=== PATIENT | female | born 1985 | race Caucasian/White ===

== ENCOUNTER 2021-01-14 21:42 | Inpatient (IN) | payer BC ==
[~2021-01-14] VITALS: Ht 167.6 cm
[2021-01-14 21:44] VITALS: BP 123/88
[2021-01-14 22:15] LABS: ABSOLUTE BASOPHILS 0.1 thou/uL (0.0-0.2); ABSOLUTE EOSINOPHILS 0.4 thou/uL (0.0-0.7); ABSOLUTE LYMPHOCYTES 2.7 thou/uL (0.8-5.3); ABSOLUTE MONOCYTES 0.5 thou/uL (0.0-1.2); ABSOLUTE NEUTROPHILS 3.8 thou/uL (1.6-8.1); BASOPHILS 1.5 %; EOSINOPHILS 5.3 %; HEMATOCRIT 47.2 % (37.0-47.0); HEMOGLOBIN 15.6 gm/dL (12.0-15.0); LYMPHOCYTES 35.6 %; MCV 84.8 fL (80.0-100.0); MONOCYTES 7.3 %; MPV 6.8 fl. (7.2-11.1); NUCLEATED RBCS 0 /100WBC; PLATELET COUNT* 385 thou/uL (150-400); POLYS 50.3 %; RBC 5.57 mil/uL (4.20-5.00); WBC 7.5 thou/uL (4.0-11.0)
[2021-01-14 22:21] LABS: CALCIUM 7.6 mg/dL (8.5-10.1); CREATININE 0.8 mg/dL (0.6-1.3); POTASSIUM 4.3 mmol/L (3.5-5.1)
[2021-01-14 22:32] LABS: ALBUMIN 3.9 g/dL (3.4-5.0); MAGNESIUM 2.5 mg/dL (1.8-2.4); TOTAL BILIRUBIN 0.2 mg/dL (<0.1-1.0)
[2021-01-14] MEDS ORDERED: BUSPIRONE HCL10 MG PO (22:51)
[2021-01-14] MEDS ORDERED: NEURONTIN300 MG PO (22:52)
[2021-01-14] MEDS ORDERED: DIAZEPAM 5 MG5 M1 PO (22:52)
[2021-01-14 23:09] LABS: URINE BILIRUBIN NEGATIVE (Negative); URINE BLOOD NEGATIVE (Negative); URINE CLARITY CLEAR; URINE COLOR YELLOW; URINE GLUCOSE-RANDOM NEGATIVE (Negative); URINE KETONES NEGATIVE (Negative); URINE LEUKOCYTES-REFLEX NEGATIVE (Negative); URINE NITRITE-REFLEX NEGATIVE (Negative); URINE PROTEIN NEGATIVE (Negative); URINE SPECIFIC GRAVITY 1.015 (1.005-1.030); URINE UROBILINOGEN 0.2 E.U./dl (0.2-1.0)
[2021-01-14 23:10] LABS: BE -4.9 mmol/L (-2 to +3); PCO2 40.3 mmHg (35.0-45.0); pH 7.329 (7.340-7.450)
[2021-01-14 23:15] LABS: AMP/METHAMP Negative (Negative); BARBITURATES Negative (Negative); BENZODIAZEPINES POSITIVE (Negative); COCAINE Negative (Negative); METHADONE Negative (Negative); OPIATES Negative (Negative); PCP Negative (Negative); THC Negative (Negative)
[2021-01-14 23:15] LABS: PO2 460.2 mmHg (75.0-100.0)
[2021-01-15] VITALS (7 sets, daily range): BP systolic 109–125; BP diastolic 65–76
--- NOTE | 2021-01-15 05:48 | NUR ---
PTS SEDATION STOPPEED AND PT EXTUBATED PT ALERT AND ORIENTED BREATHING INDEPENDENTLY
--- NOTE | 2021-01-15 09:42 | EKG ---
[place] [address] ELECTROCARDIOGRAM REPORT Name: ELZBIETA MARTINEZ Room: [place] [address] ADM [place] ..#: [id number] Admission: 01/15/21 Attend Phys: Abiola Mancilla MD Discharge: Date of : [birth year] Date of Service: 01/14/21 2149 Report #: [id number] THIS REPORT FOR: //name// [facility] ED Test Date: 2021-01-14 Test Time: 21:49:25 Pat Name: ELZBIETA MARTINEZ Department: Room: [facility] Gender: F Striper Machine: [place] : 1986-05-07 Requested By: Clara Sprague Order Number: [id number] MD: Juanito Macdonald Measurements Intervals [place] Rate: 106 P: 77 MI: 133 QRS: 70 QRSD: 71 T: 51 QT: 352 QTc: 468 Interpretive Statements Sinus tachycardia Consider anterior infarct Baseline wander in lead(s) V5 No previous ECG available for comparison Electronically Signed On 01-15-2021 9:41:46 CDT by Juanito Macdonald [email or web address] <ELECTRONICALLY SIGNED> By: Juanito Macdonald MD, FAC 01/15/21 0941 2149 2149 Juanito Macdonald MD, [facility] /EPI
[2021-01-15 12:25] LABS: ABSOLUTE LYMPHOCYTES 1.8 thou/uL (0.8-5.3); ABSOLUTE MONOCYTES 0.7 thou/uL (0.0-1.2); ABSOLUTE NEUTROPHILS 9.7 thou/uL (1.6-8.1); BASOPHILS 0.3 %; HEMATOCRIT 38.7 % (37.0-47.0); HEMOGLOBIN 12.5 gm/dL (12.0-15.0); LYMPHOCYTES 14.4 %; MCH 27.5 pg (26.0-34.0); MCHC 32.3 g/dL (28.0-37.0); MCV 85.1 fL (80.0-100.0); MONOCYTES 5.6 %; MPV 6.7 fl. (7.2-11.1); NUCLEATED RBCS 0 /100WBC; PLATELET COUNT* 346 thou/uL (150-400); POLYS 79.7 %; RBC 4.54 mil/uL (4.20-5.00); RDW-CV 13.8 % (10.5-14.5); WBC 12.1 thou/uL (4.0-11.0)
[2021-01-15 12:31] LABS: INR 0.9; PROTIME 9.8 Seconds (9.20-11.50)
[2021-01-15 12:34] LABS: ALBUMIN 3.4 g/dL (3.4-5.0); CALCIUM 7.5 mg/dL (8.5-10.1); CREATININE 0.7 mg/dL (0.6-1.3); MAGNESIUM 2.5 mg/dL (1.8-2.4); PHOSPHORUS* 2.5 mg/dL (2.5-4.9); POTASSIUM 3.5 mmol/L (3.5-5.1); TOTAL BILIRUBIN 0.2 mg/dL (<0.1-1.0); TOTAL PROTEIN 6.8 g/dL (6.4-8.2)
[2021-01-15] MEDS ORDERED: AUGMENTIN 875-1 EACH PO (14:42)
--- NOTE | 2021-01-15 15:28 | NUR ---
Patient admitted for benzo use, intoxication and resp arrest. Met with patient at bedside and introduced to role of CM to her and her . Patient currently lives in a house with her and 1 dtr. Patient is currently not working and just going to school. Patient was independent with adls prior to admission. No hx of DME, HH, SNF/Rehab, dialysis or infusion therapy. Patient currently sees a psychiatrist (Dr. Lito Cooper/ [facility] [place]). Patient stated that she has gone to alcohol rehab tx in the past (2 times) through the [facility]. She stated that she went to [place] and [place]. Patient states that she has really bad anxiety which leads to her drinking. PCP is Shelton Griffin. Called [facility] to facilitate [place] tx. [facility]. Attempted [facility] with [facility] by giving name, and SSN, yet patient is not listed in their system. Faxed referral to [facility] who declined due to capability. Dr is agreeable to send patient home with alcohol and drug resources for outpatient tx. Nursing to provide resources. Patient agreeable with plan of care. Patient is medically stable for discharge. No other CM needs noted at this time.
== END 2021-01-15 17:16 | disposition home or self-care (01) | DRG 917 ==
LOC: M.ERS 21:42 → M.TBA-ER 01-15 01:32 → EDBD 01-15 01:32 → M.TBA-ER 01-15 17:16
PROVIDERS: Emergency Medicine; Internal Medicine; ADMIT Family Medicine; ATTEND Family Medicine
PROC: 5A1935Z Respiratory Ventilation, Less than 24 Consecutive Hours (ICD-10-PCS; principal; 2021-01-15)
PROC: 0BH17EZ Insertion of Endotracheal Airway into Trachea, Via Natural or Artificial Opening (ICD-10-PCS; principal; 2021-01-15)
DX: T42.4X1A Poisoning by benzodiazepines, accidental (unintentional), initial encounter (principal); R09.2 Respiratory arrest; J69.0 Pneumonitis due to inhalation of food and vomit; F10.920 Alcohol use, unspecified with intoxication, uncomplicated; F17.290 Nicotine dependence, other tobacco product, uncomplicated; Z20.822 Contact with and (suspected) exposure to COVID-19; F41.9 Anxiety disorder, unspecified; Y92.89 Other specified places as the place of occurrence of the external cause